=== PATIENT | male | born 1975 | race Asian ===

== ENCOUNTER 2020-12-15 22:29 | Emergency (ER) | payer OTHER ==
[~2020-12-15] VITALS: Ht 172.7 cm; Wt 90.3 kg
[2020-12-15 22:46] VITALS: BP 137/83
== END 2020-12-15 23:11 | disposition home or self-care (01) ==
LOC: ER 23:04
DX: Z71.1 Person with feared health complaint in whom no diagnosis is made (principal); Z76.0 Encounter for issue of repeat prescription

== ENCOUNTER 2021-06-24 20:40 | Emergency (ER) | payer OTHER ==
[~2021-06-24] VITALS: Ht 188 cm; Wt 103.4 kg
[2021-06-24 20:52] VITALS: BP 144/62
[2021-06-24] MEDS ORDERED: PRED20TA PO (21:02)
== END 2021-06-24 21:09 | disposition home or self-care (01) ==
LOC: ER 20:44
DX: R06.02 Shortness of breath (principal); J45.909 Unspecified asthma, uncomplicated; Z76.0 Encounter for issue of repeat prescription; Z79.52 Long term (current) use of systemic steroids

== ENCOUNTER 2021-07-03 18:27 | Emergency (ER) | payer OTHER ==
[~2021-07-03] VITALS: Ht 182.9 cm; Wt 72.6 kg
[~2021-07-03 18:27] MED LIST: PRED20TA PO
--- NOTE | 2021-07-03 18:27 | NUR ---
medication refill: prednisone 20mg, denies cp
[2021-07-03] MEDS ORDERED: ALBU18HF2 INH (19:12)
[2021-07-03 19:22] VITALS: BP 128/90
--- NOTE | 2021-07-03 19:22 | NUR ---
Patient discharged to home in stable condition. Written and verbal after care instructions given. Patient verbalizes understanding of instruction.
== END 2021-07-03 19:23 | disposition home or self-care (01) ==
LOC: ER 18:33
DX: J45.909 Unspecified asthma, uncomplicated (principal); Z76.0 Encounter for issue of repeat prescription; Z79.52 Long term (current) use of systemic steroids

== ENCOUNTER 2021-07-25 06:37 | Emergency (ER) | payer OTHER ==
[~2021-07-25] VITALS: Ht 182.9 cm; Wt 73.5 kg
[~2021-07-25 06:37] MED LIST changes: +ALBU18HF2 INH
[2021-07-25 06:44] VITALS: BP 117/87
--- NOTE | 2021-07-25 06:48 | NUR ---
Patient discharged to home in stable condition. Written and verbal after care instructions given. Patient verbalizes understanding of instruction. Pt ambulatory with a steady gait
[2021-07-25] MEDS ORDERED: ALBU18HF2 INH (06:53)
== END 2021-07-25 06:58 | disposition home or self-care (01) ==
LOC: ER 06:37
DX: Z76.0 Encounter for issue of repeat prescription (principal); J45.909 Unspecified asthma, uncomplicated; Z79.899 Other long term (current) drug therapy

== ENCOUNTER 2021-12-09 03:51 | Emergency (ER) | payer OTHER ==
[~2021-12-09] VITALS: Ht 182.9 cm; Wt 81.6 kg
[2021-12-09 04:38] VITALS: BP 122/82
[2021-12-09] MEDS ORDERED: PRED20TA PO (04:41)
--- NOTE | 2021-12-09 04:43 | NUR ---
Patient discharged to home in stable condition. Written and verbal after care instructions given. Patient verbalizes understanding of instruction. Pt ambulatory with a steady gait
== END 2021-12-09 04:44 | disposition home or self-care (01) ==
LOC: ER 03:55
DX: Z76.0 Encounter for issue of repeat prescription (principal); J45.909 Unspecified asthma, uncomplicated; Z79.51 Long term (current) use of inhaled steroids

== ENCOUNTER 2021-12-26 08:38 | Emergency (ER) | payer OTHER ==
[~2021-12-26] VITALS: Ht 182.9 cm; Wt 95.3 kg
--- NOTE | 2021-12-26 09:00 | NUR ---
c/o sob 2 mins CREDIT MANAGER 95% on room air PT IS A&OX4, ABLE TO AMBULATE W/O ASSISTANCE.
--- NOTE | 2021-12-26 09:28 | NUR ---
GAVE 2.5 TABLETS, 50 MG PREDNISONE TOTAL
[2021-12-26] MEDS ORDERED: IPRATROPIUM NEB FS 0.5 MG/2.5 ML AMPUL.NEB ONE (09:29)
[2021-12-26] MEDS ORDERED: ALBUTEROL FS 2.5 MG/3 ML VIAL.NEB ONE (09:29)
[2021-12-26] MEDS ORDERED: ALBUTEROL SULFATE 8 GM HFA.AER.AD IH ONE (09:30)
[2021-12-26] MEDS ORDERED: predniSONE 50 MG TABLET PO ONE (09:30)
[2021-12-26] MEDS ORDERED: IPRATROPIUM NEB FS 0.5 MG/2.5 ML AMPUL.NEB NEB ONE (09:30)
[2021-12-26] MEDS ORDERED: ALBUTEROL FS 2.5 MG/0.5 ML VIAL.NEB NEB ONE (09:30)
[2021-12-26] MEDS ORDERED: predniSONE 20 MG TABLET PO ONE (09:30)
[2021-12-26] MEDS ORDERED: PRED50TA PO (10:09)
[2021-12-26] MEDS ORDERED: ALBU18HF2 INH (10:09)
[2021-12-26 10:20] VITALS: BP 136/88
== END 2021-12-26 10:21 | disposition home or self-care (01) ==
LOC: ER 08:42
DX: J45.901 Unspecified asthma with (acute) exacerbation (principal); Z76.0 Encounter for issue of repeat prescription; J45.909 Unspecified asthma, uncomplicated; Z79.51 Long term (current) use of inhaled steroids; Z79.899 Other long term (current) drug therapy
CPT/HCPCS: 99283; 94640; J7512

== ENCOUNTER 2022-02-01 07:46 | Emergency (ER) | payer OTHER ==
[~2022-02-01] VITALS: Ht 182.9 cm; Wt 72.6 kg
[~2022-02-01 07:46] MED LIST changes: +PRED50TA PO
[2022-02-01] MEDS ORDERED: ALBUTEROL FS 2.5 MG/0.5 ML VIAL.NEB ONE (08:14)
[2022-02-01] MEDS ORDERED: IPRATROPIUM NEB FS 0.5 MG/2.5 ML AMPUL.NEB ONE (08:14)
--- NOTE | 2022-02-01 08:20 | NUR ---
saline lock established, blood drawn sent to lab.
[2022-02-01] MEDS ORDERED: IPRATROPIUM NEB FS 0.5 MG/2.5 ML AMPUL.NEB NEB ONE (08:30)
[2022-02-01] MEDS ORDERED: ALBUTEROL FS 2.5 MG/3 ML VIAL.NEB NEB ONE (08:30)
[2022-02-01 08:41] LABS: BASOPHILS % (AUTO) 0.8 % (0.0-2.0); EOSINOPHILS % (AUTO) 7.6 % (0.0-6.0); HEMATOCRIT 45 % (39-51); HEMOGLOBIN 15.4 g/dL (13.5-17.5); LYMPHOCYTES # (AUTO) 1.4 K/uL (0.8-4.8); MEAN CORPUSCULAR HGB CONC 35 g/dl (31.0-36.0); MEAN CORPUSCULAR VOLUME 85 fL (80-96); MONOCYTES # (AUTO) 0.5 K/uL (0.1-1.30); MONOCYTES % (AUTO) 9.3 % (2.0-12.0); NEUTROPHILS # (AUTO) 3.4 K/uL (1.8-8.9); NEUTROPHILS % (AUTO) 58.3 % (43.0-81.0); PLATELET COUNT (AUTO) 154 K/uL (150-450); RED BLOOD CELL COUNT(AUTO) 5.24 MIL/uL (4.5-6.0); WHITE BLOOD COUNT (AUTO) 5.8 K/uL (4.3-11.0)
[2022-02-01 09:24] LABS: CALCIUM, SERUM 9.3 mg/dL (8.5-10.1); CARBON DIOXIDE 33 mmol/L (21-32); CHLORIDE 104 mmol/L (98-107); CREATININE 0.9 mg/dL (0.6-1.3); GLUCOSE 102 mg/dL (74-106); POTASSIUM 4.1 mmol/L (3.5-5.1); SODIUM SERUM 138 mmol/L (136-145); UREA NITROGEN, BLOOD 16 mg/dL (7-18)
[2022-02-01 09:30] LABS: ALANINE AMINOTRANSFERASE 52 U/L (12-78); ALBUMIN 3.9 g/dL (3.4-5.0); ALKALINE PHOSPHATASE 65 U/L (46-116); ASPARTATE AMINOTRANSFERASE 20 U/L (15-37); BILIRUBIN,DIRECT 0.1 mg/dL (0.0-0.2); BILIRUBIN,TOTAL 0.6 mg/dL (0.2-1.0); TOTAL PROTEIN, SERUM 7.2 g/dL (6.4-8.2)
[2022-02-01 10:39] VITALS: BP 121/81
--- NOTE | 2022-02-01 10:43 | NUR ---
IV removed. Catheter intact and site benign. Pressure and 4x4 applied to site. No bleeding noted.
--- NOTE | 2022-02-01 10:43 | NUR ---
Patient discharged to home in stable condition. Written and verbal after care instructions given. Patient verbalizes understanding of instruction.
== END 2022-02-01 10:15 | disposition home or self-care (01) ==
LOC: ER 07:49
DX: R06.02 Shortness of breath (principal); J45.909 Unspecified asthma, uncomplicated; Z79.899 Other long term (current) drug therapy
CPT/HCPCS: 36415; 71045-TC; 80048-TC; 80076-TC; 83880; 84484-TC; 85025-TC; 94799-TC

== ENCOUNTER 2022-02-04 11:23 | Emergency (ER) | payer OTHER ==
--- NOTE | 2022-02-04 11:43 | NUR ---
Called- NO response
--- NOTE | 2022-02-04 12:20 | NUR ---
Multiple calls NO response- [facility]
--- NOTE | 2022-02-04 12:27 | NUR ---
Multiple calls NO response- [facility]
== END 2022-02-04 12:28 | disposition home or self-care (01) ==
LOC: ER 11:27
DX: Z53.21 Procedure and treatment not carried out due to patient leaving prior to being seen by health care provider (principal)

== ENCOUNTER 2022-02-15 11:00 | Emergency (ER) | payer OTHER ==
[~2022-02-15] VITALS: Ht 182.9 cm; Wt 72.6 kg
[2022-02-15] MEDS ORDERED: IPRATROPIUM NEB FS 0.5 MG/2.5 ML AMPUL.NEB ONE (11:46)
[2022-02-15] MEDS ORDERED: ALBUTEROL FS 2.5 MG/3 ML VIAL.NEB ONE (11:46)
[2022-02-15] MEDS: ALBUTEROL FS 2.5 MG/3 ML VIAL.NEB NEB ONE (11:52)
[2022-02-15] MEDS: IPRATROPIUM NEB FS 0.5 MG/2.5 ML AMPUL.NEB NEB ONE (11:52)
[2022-02-15 12:14] LABS: BASOPHILS # (AUTO) 0.1 K/uL (0.0-0.2); BASOPHILS % (AUTO) 0.6 % (0.0-2.0); EOSINOPHILS % (AUTO) 4.1 % (0.0-6.0); HEMATOCRIT 46 % (39-51); HEMOGLOBIN 15.9 g/dL (13.5-17.5); LYMPHOCYTES # (AUTO) 1.8 K/uL (0.8-4.8); MEAN CORPUSCULAR HGB CONC 35 g/dl (31.0-36.0); MEAN CORPUSCULAR VOLUME 85 fL (80-96); MONOCYTES # (AUTO) 0.6 K/uL (0.1-1.30); MONOCYTES % (AUTO) 7.4 % (2.0-12.0); NEUTROPHILS # (AUTO) 5.8 K/uL (1.8-8.9); NEUTROPHILS % (AUTO) 66.9 % (43.0-81.0); PLATELET COUNT (AUTO) 171 K/uL (150-450); WHITE BLOOD COUNT (AUTO) 8.7 K/uL (4.3-11.0)
[2022-02-15 12:37] LABS: CALCIUM, SERUM 8.8 mg/dL (8.5-10.1); CARBON DIOXIDE 31 mmol/L (21-32); CHLORIDE 104 mmol/L (98-107); CREATININE 0.9 mg/dL (0.6-1.3); GLUCOSE 99 mg/dL (74-106); POTASSIUM 4.3 mmol/L (3.5-5.1); SODIUM SERUM 137 mmol/L (136-145); UREA NITROGEN, BLOOD 19 mg/dL (7-18)
[2022-02-15 12:49] LABS: ALANINE AMINOTRANSFERASE 50 U/L (12-78); ALKALINE PHOSPHATASE 77 U/L (46-116); ASPARTATE AMINOTRANSFERASE 22 U/L (15-37); BILIRUBIN,DIRECT 0.1 mg/dL (0.0-0.2); BILIRUBIN,TOTAL 0.5 mg/dL (0.2-1.0); TOTAL PROTEIN, SERUM 7.2 g/dL (6.4-8.2)
[2022-02-15 13:05] VITALS: BP 128/77
[2022-02-15] MEDS ORDERED: PRED20TA PO (13:26)
[2022-02-15] MEDS ORDERED: ALBU18HF2 INH (13:26)
== END 2022-02-15 13:33 | disposition home or self-care (01) ==
LOC: ER 11:06
DX: J45.901 Unspecified asthma with (acute) exacerbation (principal); R06.02 Shortness of breath; J45.909 Unspecified asthma, uncomplicated; Z79.899 Other long term (current) drug therapy
CPT/HCPCS: 36415; 71045-TC; 80048-TC; 80076-TC; 84484-TC; 85025-TC

== ENCOUNTER 2022-02-18 15:35 | Emergency (ER) | payer OTHER ==
[~2022-02-18] VITALS: Ht 182.9 cm; Wt 72.6 kg
--- NOTE | 2022-02-18 16:00 | NUR ---
PT SEEN BY DR LEPE
--- NOTE | 2022-02-18 16:10 | NUR ---
NO MED REFILL PER MD; INFORMED PT THAT HE SHOULD SEE HIS PRIMARY DOCTOR/INDUSTRIAL SAFETY AND HEALTH MANAGER FOR MED REFILL/ADJUSTMENT
--- NOTE | 2022-02-18 16:15 | NUR ---
Patient discharged to home in stable condition. Written and verbal after care instructions given. Patient verbalizes understanding of instruction.
[2022-02-18 16:16] VITALS: BP 138/79
== END 2022-02-18 16:17 | disposition home or self-care (01) ==
LOC: ER 15:44
DX: Z76.0 Encounter for issue of repeat prescription (principal); J45.909 Unspecified asthma, uncomplicated; Z79.899 Other long term (current) drug therapy

== ENCOUNTER 2023-03-12 11:06 | Emergency (ER) | payer OTHER ==
[~2023-03-12] VITALS: Ht 182.9 cm; Wt 73.5 kg
[2023-03-12] MEDS ORDERED: ALBU18HF2 INH (11:15)
[2023-03-12] MEDS ORDERED: FLUT10.62 INH (11:15)
[2023-03-12 11:16] VITALS: BP 148/91; TEMP 98.4; O2SAT 100
== END 2023-03-12 11:37 | disposition home or self-care (01) ==
LOC: ER 11:10
DX: Z76.0 Encounter for issue of repeat prescription (principal); J45.909 Unspecified asthma, uncomplicated; R06.02 Shortness of breath

== ENCOUNTER 2023-04-08 16:56 | Emergency (ER) | payer OTHER ==
[~2023-04-08 16:56] MED LIST changes: +FLUT10.62 INH
== END 2023-04-08 17:20 | disposition left against medical advice (07) ==
LOC: ER 17:00
DX: Z76.0 Encounter for issue of repeat prescription (principal); Z53.21 Procedure and treatment not carried out due to patient leaving prior to being seen by health care provider

== ENCOUNTER 2023-04-23 11:35 | Emergency (ER) | payer OTHER ==
[~2023-04-23] VITALS: Ht 182.9 cm; Wt 73.5 kg
[2023-04-23 11:59] VITALS: BP 130/95; TEMP 98.4; O2SAT 99
== END 2023-04-23 12:11 | disposition home or self-care (01) ==
LOC: ER 11:35
DX: Z71.1 Person with feared health complaint in whom no diagnosis is made (principal); J45.909 Unspecified asthma, uncomplicated

== ENCOUNTER 2023-05-06 13:59 | Emergency (ER) | payer OTHER ==
[~2023-05-06] VITALS: Ht 182.9 cm; Wt 72.6 kg
[2023-05-06 14:01] VITALS: BP 134/82; TEMP 98.2
[2023-05-06] MEDS ORDERED: ALBU18HF2 INH (14:34)
[2023-05-06 14:39] VITALS: O2SAT 98
== END 2023-05-06 14:39 | disposition home or self-care (01) ==
LOC: ER 14:01
DX: J45.909 Unspecified asthma, uncomplicated (principal); Z76.0 Encounter for issue of repeat prescription; Z79.899 Other long term (current) drug therapy

== ENCOUNTER 2024-03-03 20:30 | Emergency (ER) | payer OTHER ==
[~2024-03-03] VITALS: Ht 182.9 cm; Wt 72.6 kg
[2024-03-03 21:53] VITALS: BP 134/87; TEMP 98; O2SAT 96
== END 2024-03-03 21:54 | disposition home or self-care (01) ==
LOC: ER 20:35
DX: J45.901 Unspecified asthma with (acute) exacerbation (principal); Z76.0 Encounter for issue of repeat prescription; Z79.51 Long term (current) use of inhaled steroids; Z79.52 Long term (current) use of systemic steroids

== ENCOUNTER 2024-03-22 13:25 | Emergency (ER) | payer OTHER | END 2024-03-22 16:16 | disposition left against medical advice (07) | LOC: ER 13:25 | DX: Z00.00 Encounter for general adult medical examination without abnormal findings (principal); Z53.21 Procedure and treatment not carried out due to patient leaving prior to being seen by health care provider | CPT/HCPCS: A6403 ==